=== PATIENT | male | born 1970 | race Caucasian/White ===

== ENCOUNTER 2024-07-31 00:56 | Emergency (ER) | payer OTHER ==
[~2024-07-31] VITALS: Ht 172.7 cm; Wt 134.0 kg
[2024-07-31 01:42] VITALS: O2SAT 95
[2024-07-31] MEDS: ACETAMINOPHEN 325MG TABLET PO ONE (03:52)
[2024-07-31] MEDS: LIDOCAINE 5% PATCH TOP SCH (03:54)
[2024-07-31] MEDS ORDERED: BACL-141 MT (05:14)
[2024-07-31] MEDS ORDERED: ACET-2708 MT (05:14)
[2024-07-31 06:00] VITALS: BP 134/89; PULSE 60; RESP 18; TEMP 36.9; O2SAT 100
== END 2024-07-31 06:07 | disposition home or self-care (01) ==
LOC: ER 00:56
DX: R07.81 Pleurodynia (principal); Z79.899 Other long term (current) drug therapy
CPT/HCPCS: 71101; 93005; 99283